=== PATIENT | female | born 1960 | race Caucasian/White ===

== ENCOUNTER 2021-12-19 14:47 | Emergency (ER) | payer BC, SELFPAY ==
[2021-12-19 14:59] VITALS: BP 113/70; PULSE 95; RESP 18; TEMP 36.4; O2SAT 97
[2021-12-19 15:02] VITALS: BP 113/70; PULSE 95; RESP 18; TEMP 36.4; O2SAT 97
--- NOTE | 2021-12-19 15:40 | ED.URI ---
HPI - URI/Sore Throat General Chief Complaint: Upper Respiratory Infection Stated Complaint: unknown Time Seen by Provider: 12/19/21 15:31 Source: patient Mode of arrival: ambulatory Limitations: no limitations History of Present Illness HPI Narrative: Patient presents today with a sore throat x1 week that has been worse over the last 2 days, with postnasal drip, congestion, bilateral ear pressure. Reports she does have a cough but this is baseline for her. She currently rates her pain 8/10 and has been using Advil, Chloraseptic spray, [id number] cough medicine the temporary relief. History of chronic sinusitis and has been on multiple antibiotics over the last several years for flare-ups. Related Data Home Medications Medication Instructions Recorded Confirmed budesonide 0.5 mg/2 mL suspension 0.5 mg inhalation PRN PRN 12/19/21 12/19/21 for nebulization Shortness Of Breath Or Wheezing dupilumab 300 mg/2 mL subcutaneous 300 mg subcut WEEKLY 12/19/21 12/19/21 syringe (Dupixent) esomeprazole magnesium 40 mg 40 mg PO DAILY 12/19/21 12/19/21 capsule,delayed release (Nexium) sumatriptan succinate 25 mg tablet 25 mg PO PRN PRN Migraine Headache 12/19/21 12/19/21 trazodone 150 mg tablet 150 mg PO DAILY 12/19/21 12/19/21 umeclidinium 62.5 mcg-vilanterol 2 inh inhalation DAILY 12/19/21 12/19/21 25 mcg/actuation powdr for inhalation (Anoro Ellipta) Allergies Allergy/AdvReac Type Severity Reaction Status Date / Time acetaminophen [From Vicodin] AdvReac Severe Hallucinati Verified 12/19/21 15:08 ng sulfamethoxazole AdvReac Intermediate Gastrointestinal Verified 12/19/21 15:08 [From Bactrim] Upset trimethoprim [From Bactrim] AdvReac Intermediate Gastrointestinal Verified 12/19/21 15:08 Upset hydrocodone AdvReac Mild Hives Verified 12/19/21 15:08 naproxen AdvReac Mild Hives Verified 12/19/21 15:08 Penicillins AdvReac Mild Hives Verified 12/19/21 15:08 Review of Systems Review of Systems: CONSTITUTIONAL: Denies body aches, fever, chills, or sweats. EYES: Denies visual changes, redness, or discharge. ENT: Denies rhinorrhea. + sore throat, postnasal drip, congestion, bilateral ear pressure CARDIOVASCULAR: Denies chest pain, palpitations, or edema. RESPIRATORY: Denies dyspnea.+ cough GASTROINTESTINAL: Denies abdominal pain, nausea, vomiting, or diarrhea. GENITOURINARY: Denies dysuria or hematuria. SKIN: Denies rash, itching, or wounds. MUSCULOSKELETAL: Denies back pain, joint pain, or myalgia. NEUROLOGIC: Denies headache, numbness, tingling, or weakness. PSYCH: Denies depression or anxiety. [facility] Past Medical History Medical History (Updated 12/19/21 @ 15:44 by Silvana Rice, [employer], ) Chronic sinusitis Comments At time of signature, I have reviewed and agree with nursing past medical, surgical, social and family history unless otherwise noted. Please see nursing chart for further information. There is no relevant family history pertinent to the presenting complaint Exam Narrative: GENERAL: Well-appearing, well-nourished, and in no acute distress. HEAD: Normocephalic, atraumatic. EYES: EOMI. No redness or drainage. Conjunctivae normal. ENT: Mucous membranes pink and moist. Nares mildly congested. Bilateral nasal turbinates are mildly erythematous. Bloody crusting in the left naris. Bilateral maxillary sinus tenderness. No rhinorrhea. TMs normal bilaterally. Throat erythematous without edema or exudate. Uvula midline. NECK: Normal AROM. Supple. No lymphadenopathy. CHEST: No respiratory distress. Expiratory wheezing in the bilateral lower lobes, otherwise clear. HEART: Regular rate and rhythm. No murmur appreciated. Normal peripheral pulses. EXTREMITIES: Normal range of motion. No edema. SKIN: Warm, dry, no rash. Capillary refill normal. Normal skin turgor. NEURO: No focal deficits. Alert and oriented x3. Gait steady. PSYCH: Normal affect. No signs of depression or anxiety. C
== END 2021-12-19 15:46 | disposition home or self-care (01) ==
PROVIDERS: Emergency Provider Nurse Practitioner
DX: J06.9 Acute upper respiratory infection, unspecified (principal); J02.9 Acute pharyngitis, unspecified; K21.9 Gastro-esophageal reflux disease without esophagitis; F32.A Depression, unspecified
CPT/HCPCS: 87081; 87880; 99213; G0463

== ENCOUNTER 2022-07-29 10:27 | Emergency (ER) | payer BC, SELFPAY ==
[2022-07-29 10:50] VITALS: BP 104/68; PULSE 72; RESP 18; TEMP 36.3; O2SAT 96
--- NOTE | 2022-07-29 10:51 | ED.SKABFB ---
HPI - Skin/Abscess/Foreign Bdy General Chief complaint: Skin/Abscess/Foreign Body Stated complaint: rash under lt breast Source: patient and RN notes reviewed History of Present Illness HPI narrative: 62 yo F presents to urgent care with an itchy rash under her left breast x 10 days. Pt states she had a left sided lumpectomy at the beginning of June and then the rash developed 10 days ago. Pt thought it was yeast at first so she has been applying Lotrimin spray without relief. Pt states she tried her daughter's Monostat cream on it yesterday x 1 and had better results. Pt denies any pain or tingling but doesn't know if it's b/c shes still slightly numb from the recent lumpectomy. Pt denies any fevers, chills, vomiting, chest pain, or SOB. Pt states she is due to have hip surgery next week. Related Data Home Medications Medication Instructions Recorded Confirmed budesonide 0.5 mg/2 mL suspension 0.5 mg inhalation PRN PRN 12/19/21 07/21/22 for nebulization Shortness Of Breath Or Wheezing dupilumab 300 mg/2 mL subcutaneous 300 mg subcut WEEKLY 12/19/21 07/21/22 syringe (Dupixent) esomeprazole magnesium 40 mg 40 mg PO DAILY 12/19/21 07/21/22 capsule,delayed release (Nexium) sumatriptan succinate 25 mg tablet 25 mg PO PRN PRN Migraine Headache 12/19/21 07/21/22 trazodone 150 mg tablet 150 mg PO HS 12/19/21 07/21/22 umeclidinium 62.5 mcg-vilanterol 2 inh inhalation DAILY 12/19/21 07/21/22 25 mcg/actuation powdr for inhalation (Anoro Ellipta) anastrozole 1 mg tablet 1 mg PO DAILY 07/21/22 07/21/22 Allergies Allergy/AdvReac Type Severity Reaction Status Date / Time hydrocodone AdvReac Severe Hallucinati Verified 07/29/22 11:13 ng sulfamethoxazole AdvReac Intermediate Gastrointestinal Verified 07/29/22 11:13 [From Bactrim] Upset trimethoprim [From Bactrim] AdvReac Intermediate Gastrointestinal Verified 07/29/22 11:13 Upset acetaminophen [From Vicodin] AdvReac Mild Hives Verified 07/29/22 11:13 naproxen AdvReac Mild Hives Verified 07/29/22 11:13 Penicillins AdvReac Mild Hives Verified 07/29/22 11:13 Review of Systems Review of Systems: CONSTITUTIONAL: Denies fever, chills, or sweats. EYES: Denies visual changes, redness, or discharge. ENT: Denies otalgia and sore throat CARDIOVASCULAR: Denies chest pain, palpitations, or edema. RESPIRATORY: Denies cough or dyspnea. GASTROINTESTINAL: Denies abdominal pain, nausea, vomiting, or diarrhea. GENITOURINARY: Denies dysuria or hematuria. SKIN:itchy rash under left breast MUSCULOSKELETAL: Denies back pain, joint pain, or myalgia. NEUROLOGIC: Denies headache, numbness, or weakness. Pertinent positives per HPI. [facility] Past Medical History Medical History (Updated 07/29/22 @ 11:06 by Consuelo Kelsey, RN FIELD) Breast cancer Chronic sinusitis History of histoplasmosis Surgical History Surgical History (Updated 07/21/22 @ 15:37 by Silvana Rice, [facility], ) History of lumpectomy Comments At the time of my signature, I reviewed and agree with the nursing past medical, surgical, social, and family history. There is no relevant family history pertinent to the patient complaint. Exam Narrative: GENERAL: This is a well-nourished, well-developed patient, in no apparent distress. HEAD: normocephalic, atraumatic. EYES: Sclera clear/white. Vision is grossly intact. EARS: External ears normal, auditory canals clear and without drainage. Hearing grossly intact. NOSE: External nose normal with no obvious nasal discharge, nares without redness, no rhinorrhea. THROAT: Mucous membranes moist, posterior pharynx clear. NECK: Neck supple, non-tender without lymphadenopathy, masses or thyromegaly. CARDIOVASCULAR: Regular rate RESPIRATORY: Clear to auscultation. Breath sounds equal bilaterally. No wheezes, rales, or rhonchi. GASTROINTESTINAL: Abdomen soft, non-tender, nondistended. Bowel sounds are active. No hepato-splenomegaly, or palpable masses. No guarding.
== END 2022-07-29 11:15 | disposition home or self-care (01) ==
PROVIDERS: Emergency Provider Nurse Practitioner Family
DX: B37.2 Candidiasis of skin and nail (principal); Z85.3 Personal history of malignant neoplasm of breast; K21.9 Gastro-esophageal reflux disease without esophagitis; F32.A Depression, unspecified
CPT/HCPCS: 99213; G0463